=== PATIENT | female | born 1960 | race African-American/Black ===

== ENCOUNTER 2021-01-22 10:28 | Inpatient (IN) | payer OTHER ==
[2021-01-22 10:41] VITALS: BMI 24.9
[2021-01-22 13:39] LABS: ALBUMIN 3.8 g/dl (3.4-5.0); BLOOD UREA NITROGEN 67.3 mg/dL (7-18); CALCIUM 9.3 mg/dL (8.5-10.1)
[2021-01-22 13:43] LABS: CREATININE 5.3 mg/dL (0.55-1.3)
[2021-01-22 13:44] LABS: BILIRUBIN,TOTAL 0.2 mg/dL (0.2-1); TOT PROT 8.5 g/dl (6.4-8.2)
[2021-01-22 14:30] LABS: BASO % 0.7 % (0-2.0); EOS % 2.6 % (0-4.5); HEMATOCRIT 34.2 % (32.4-45.2); HEMOGLOBIN 11.3 GM/dL (10.7-15.3); MCH 28.7 pg (25.7-33.7); MEAN CELL VOLUME 86.8 fl (80-96); MEAN PLT VOLUME 8.1 fl (7.5-11.1); MONO % 10.6 % (3.8-10.2); NEUT % 49.1 % (42.8-82.8); PLATELET COUNT 176 K/MM3 (134-434); RBC 3.94 M/mm3 (3.60-5.2); RDW 18.7 % (11.6-15.6); WHITE BLOOD COUNT 8.5 K/mm3 (4.0-10.0)
[2021-01-22 14:36] LABS: INR 0.95 (0.83-1.09); PROTHROMBIN TIME (PATIENT) 11.7 SEC (9.7-13.0)
[2021-01-22 14:38] LABS: ACTIVATED PTT 22.9 SECONDS (25.2-36.5)
[2021-01-22 14:56] LABS: ALBUMIN 3.3 g/dl (3.4-5.0); BLOOD UREA NITROGEN 63.2 mg/dL (7-18)
[2021-01-22 15:00] LABS: CREATININE 5.3 mg/dL (0.55-1.3)
[2021-01-22 15:01] LABS: BILIRUBIN,TOTAL 0.2 mg/dL (0.2-1); TOT PROT 7.4 g/dl (6.4-8.2)
[2021-01-22] MEDS ORDERED: HEPARIN NA (PORCINE) 5,000 UNITS/ML 1ML VIAL ONE (15:26)
[2021-01-22] MEDS ORDERED: LIDOCAINE HCL 1%, 10 MG/ML (20ML VIAL) ONE (15:26)
[2021-01-22] MEDS ORDERED: morphine SULFATE 4 MG/ML VIAL IVPUSH ONE (15:47)
[2021-01-22] MEDS ORDERED: MORPHINE SULFATE 2 MG/ML VIAL ONE (15:50)
[2021-01-22] MEDS ORDERED: ACETAMINOPHEN WITH CODEINE 300MG/30MG TABLET PO PRN (16:14)
[2021-01-22] MEDS ORDERED: LIDOCAINE HCL 1% PRESERVATIVE FREE - 30ML VIAL IJ ONE (16:30)
[2021-01-22] MEDS ORDERED: ONDANSETRON 4 MG/2 ML VIAL IVPUSH PRN (16:39)
[2021-01-22] MEDS ORDERED: HEPARIN NA (PORCINE) 5,000 UNITS/ML 1ML VIAL IVPUSH ONE (16:40)
[2021-01-22] MEDS ORDERED: ceFAZolin SODIUM 1 GM VIAL IVPB ONE (16:40)
[2021-01-22] MEDS ORDERED: SODIUM CHLORIDE 1,000 ML IV SCH (16:45)
[2021-01-22] MEDS ORDERED: ONDANSETRON 4 MG/2 ML VIAL ONE (16:51)
[2021-01-22] MEDS ORDERED: PROPOFOL 20 ML ONE (16:51)
[2021-01-22] MEDS ORDERED: MIDAZOLAM HCL 2 MG/2 ML SINGLE DOSE VIAL ONE (16:51)
[2021-01-22] MEDS ORDERED: CALCIUM ACETATE 667 MG CAPSULE (FP) PO SCH (17:30)
[2021-01-22] MEDS ORDERED: SODIUM BICARBONATE 650 MG TABLET PO SCH (18:00)
[2021-01-22 18:22] VITALS: BP 140/83; PULSE 64; TEMP 97.8
[2021-01-22] MEDS ORDERED: ACETAMINOPHEN WITH CODEINE 300MG/30MG TABLET PO SCH (22:00)
[2021-01-23] MEDS ORDERED: amLODIPine BESYLATE 10 MG TABLET (FP) PO SCH (10:00)
== END 2021-01-22 18:05 | disposition home or self-care (01) | DRG 698 ==
LOC: JER 10:28 → JERBED 11:42
PROVIDERS: ADMIT Internal Medicine; ATTEND Internal Medicine
PROC: 02H633Z Insertion of Infusion Device into Right Atrium, Percutaneous Approach (ICD-10-PCS; 2021-01-22)
PROC: 02PA33Z Removal of Infusion Device from Heart, Percutaneous Approach (ICD-10-PCS; principal; 2021-01-22 17:00)
DX: T82.41XA Breakdown (mechanical) of vascular dialysis catheter, initial encounter (principal); N18.6 End stage renal disease; I12.0 Hypertensive chronic kidney disease with stage 5 chronic kidney disease or end stage renal disease; Y83.8 Other surgical procedures as the cause of abnormal reaction of the patient, or of later complication, without mention of misadventure at the time of the procedure; Z99.2 Dependence on renal dialysis; G89.29 Other chronic pain
CPT/HCPCS: 36415; 71045-TC-FY; 76000-TC-FY; 80053; 85025; 85610; 85730; 86850; 86900; 86901; 93005; 93010; 99285-25; C9803; J1644; U0003; U0005